=== PATIENT | female | born 1985 | race Caucasian/White ===

== ENCOUNTER 2018-09-14 16:58 | Inpatient (IN) | payer OTHER ==
[~2018-09-14] VITALS: Ht 172.7 cm; Wt 85.9 kg
[2018-09-14] MEDS ORDERED: PREN-93 PO (17:22)
[2018-09-14] MEDS ORDERED: MESA1.2T2 PO (17:22)
[2018-09-14] MEDS ORDERED: SERT100T PO (17:22)
[2018-09-14 17:23] VITALS: BP 101/57; PULSE 129; RESP 18
[2018-09-14 17:25] VITALS: Ht 172.7 cm; Wt 85.9 kg
--- NOTE | 2018-09-14 17:42 | TRIAGE ---
OB Triage Datetime Report Generated by CPN: 09/14/2018 17:41 Datetime: 09/14/2018 17:30 Vaginal Exam Dilatation (cms): 1.0 Effacement (%): 50 Station: -2 Exam By: FABI Vaginal Bleeding: None Pool: Positive Nitrazine: Positive Cervix, Consistency: Moderate Cervix, Position: Midposition Datetime: 09/14/2018 17:18 Assessment Type: Triage EGA: 37.4 Maternal Assessment Level of Consciousness: Fully Conscious DTR's/Clonus: DTRs 2+; No Clonus Headache: Denies Blurred Vision: No Respiratory Effort: Unlabored; Regular Rhythm; Equal Expansion Breath Sounds, Left: Clear and Equal Breath Sounds, Right: Clear and Equal Nausea/Vomiting: Denies RUQ Epigastric Pain: Denies Lower Extremities Edema: Bilateral Lower Extremities Degree: None Upper Extremities Edema: None Degree: None Facial Edema: None Fall Risk Assessment History of Falling: (0) No Secondary Diagnosis: (0) No Ambulatory Aid: (0) Bedrest/Nurse Assist IV Therapy: (0) No Gait: (0) Normal/Bedrest/Immobile Mental Status: (0) Oriented to Own Ability Fall Score: 0 Fall Risk Score Definition: No Risk: No action required Datetime: 09/14/2018 17:17 Time of Arrival: 09/14/2018 16:50 Arrived By: Ambulatory Arrived From: Home Chief Complaint: PT. HERE C/O SROM SINCE 1630 Movement: Present Contractions: Denies/Absent Rupture of Membranes: Ruptured Vaginal Bleeding: None Vaginal Discharge: Denies Recent Sexual Intercouse: Denies Abdominal Trauma: Not Applicable Patient Complaints: None Time Provider Notified: 09/14/2018 17:35 Provider Notified: REICHE Initial Plan: SVE/EFM Datetime: 09/14/2018 17:14 Labor Evaluation Monitor Mode: External Heart Rate Monitor Mode: External US
[2018-09-14] MEDS ORDERED: OXYTOCIN 30 UNITS/LR 500 ML IV SCH ×3 (18:00)
[2018-09-14] MEDS ORDERED: OXYTOCIN 30 UNITS/LR 500 ML IV PRN (18:00)
[2018-09-14] MEDS ORDERED: MISOPROSTOL 200 MCG TAB PR PRN (18:00)
[2018-09-14] MEDS ORDERED: METHYLERGONOVINE 0.2 MG INJ IM PRN (18:00)
[2018-09-14] MEDS ORDERED: IBUPROFEN 600 MG TAB PO PRN (18:00)
[2018-09-14] MEDS ORDERED: LIDOCAINE 1% (MPF) 30 ML INJ INJ PRN (18:00)
[2018-09-14] MEDS ORDERED: BUTORPHANOL 2 MG INJ IV PRN (18:00)
[2018-09-14] MEDS ORDERED: CARBOPROST 250 MCG INJ IM PRN (18:00)
[2018-09-14] MEDS: LACTATED RINGER'S 1,000 ML IV SCH ×2 (18:46→21:18)
[2018-09-14] MEDS ORDERED: RANITIDINE 150 MG TAB PO ONE (23:00)
[2018-09-15] MEDS ORDERED: FENTAnyl 2MCG/ML-ROPIV 0.2% 100 ML ONE (00:24)
--- NOTE | 2018-09-15 00:34 | PREAC ---
Date/Time of Note Date/Time of Note DATE: 09/15/18 TIME: 00:33 Anesthesia Eval and Record Evaluation Time Pre-Procedure Interview DATE: 09/15/18 TIME: 00:33 Age 33 Sex female NPO: 8 hrs Preoperative diagnosis Labor Pain Planned procedure Labor Epidural Past Medical History Past Medical History: Includes Heme: Anemia : : (1), Para: (0), Gestational age: (37) Surgery & Anesthesia Issues No known issue Meds Anticoagulation: No Beta Lloyd within 24 hr: No Reason Beta Lloyd not given: Pt. not on B-Lloyd Reported Medications Vit No.124/Iron/FA ( Vitamin Tablet) 1 Each Tablet, 1 EACH PO DAILY, TAB 09/14/18 Mesalamine (Lialda) 1.2 Gm Tablet.dr, 1.2 GM PO QHS 09/14/18 Sertraline Hcl* (Zoloft*) 100 Mg Tablet, 100 MG PO QHS, #30 TAB 09/14/18 Current Medications Lactated Ringer's 1,000 ml @ 125 mls/hr Q8H IV Last administered on 09/14/18at 21:18; Admin Dose 125 MLS/HR; Start 09/14/18 at 17:44 Butorphanol Tartrate (Stadol) 2 mg Q2H PRN IV .PAIN; Start 09/14/18 at 18:00 Lidocaine (Xylocaine 1% (Mpf)) 30 ml ONCE PRN INJ .EPISIOTOMY; Start 09/14/18 at 18:00 Oxytocin/Lactated Ringer's 500 ml @ 500 mls/hr ONCE POST IV ; Start 09/14/18 at 18:00 Oxytocin/Lactated Ringer's 500 ml @ 125 mls/hr POST IV ; Start 09/14/18 at 18:00 Ibuprofen (Motrin) 600 mg ONCE PRN PO .PAIN 1-5; Start 09/14/18 at 18:00 Oxytocin/Lactated Ringer's 500 ml @ 0 mls/hr ONCE PRN IV .VAGINAL BLEEDING; Start 09/14/18 at 18:00 Methylergonovine Maleate (Methergine) 0.2 mg ONCE PRN IM .VAGINAL BLEEDING; Start 09/14/18 at 18:00 Carboprost Tromethamine (Hemabate) 250 mcg ONCE PRN IM .VAGINAL BLEEDING; Start 09/14/18 at 18:00 Misoprostol (Cytotec) 1,000 mcg ONCE PRN WA .VAGINAL BLEEDING; Start 09/14/18 at 18:00 Oxytocin/Lactated Ringer's 500 ml @ 0 mls/hr FOR AUGMENTATION IV Last administered on 09/14/18at 22:10; Admin Dose 1 MLS/HR; Start 09/14/18 at 18:00 Meds reviewed: Yes Allergies Coded Allergies: No Known Allergy (Unverified , 09/14/18) Allergies Reviewed: Yes Labs/Studies Labs Reviewed: Reviewed by anesthesiologist Result Diagram: 09/14/18 1840 Laboratory Tests 09/14/18 18:40 Blood Bank Test 09/14/18 18:40 Antibody Screen NEGATIVE Blood Type O POSITIVE Rh Immune Globulin Candidate NO test: Positive Studies: ECG (n/a), CXR (n/a) Pre-procedure Exam Last vitals Vital Signs Date Temp Pulse Resp B/P (MAP) Pulse Ox O2 O2 Flow FiO2 Time Delivery Rate 09/14/18 97.7 129 18 101/57 Room Air 17:23 (72) Airway: Adequate mouth opening, Adequate thyromental dist Mallampati: Mallampati II Teeth: Normal Lung: Normal Heart: Normal ASA Physical Status ASA physical status: 2 Emergency: None Planned Anesthetic Neuraxial: Epidural Planned Pain Management Epidural Pre-operative Attestations Prior to commencing anesthesia and surgery, the patient was re-evaluated, there was verification of: *The patient's identity *The results of appropriate recent lab work and preoperative vital signs *The above evaluation not changing prior to induction *Anesthetic plan, risk benefits, alternative and complications discussed with patient/family; questions answered; patient/family understands, accepts and wishes to proceed. KRIS HERNANDEZ MD Sep 15, 2018 00:34
--- NOTE | 2018-09-15 00:40 | PAC ---
Date/Time of Note Date/Time of Note DATE: 09/15/18 TIME: 00:40 Post-Anesthesia Notes Post-Anesthesia Note Last documented vital signs Vital Signs Date Temp Pulse Resp B/P (MAP) Pulse Ox O2 O2 Flow FiO2 Time Delivery Rate 09/15/18 98.7 87 18 101/57 100 Room Air 00:33 (72) Activity: WNL Respiratory function: WNL Cardiovascular function: WNL Mental status: Baseline Pain reasonably controlled: Yes Hydration appropriate: Yes Nausea/Vomiting absent: Yes KRIS HERNANDEZ MD Sep 15, 2018 00:40
[2018-09-15] MEDS: LACTATED RINGER'S 1,000 ML IV SCH ×4 (00:42→09:22)
[2018-09-15] MEDS ORDERED: NALOXONE (0.4 MG/ML) INJ IV PRN (01:00)
[2018-09-15] MEDS: FENTAnyl 2MCG/ML-ROPIV 0.2% 100 ML BAG EPI SCH ×2 (08:26→15:52)
[2018-09-15] MEDS ORDERED: RANITIDINE 150 MG TAB PO SCH (09:30)
[2018-09-15] MEDS ORDERED: AMPICILLIN 2 GM/NS (PMX) 100 ML IV ONE (09:30)
[2018-09-15] MEDS ORDERED: VALACYCLOVIR 500 MG TAB PO SCH (09:30)
[2018-09-15] MEDS ORDERED: AMPICILLIN 1 GM/NS (PMX) 50 ML IV SCH (13:30)
[2018-09-15] MEDS: LACTATED RINGER'S 1,000 ML IV* SCH (17:22)
[2018-09-15] MEDS ORDERED: OXYTOCIN 30 UNITS/LR 500 ML IV SCH (17:22)
--- NOTE | 2018-09-15 17:29 | LDN ---
Date/Time of Note Date/Time of Note DATE: 09/15/18 TIME: 17:27 Delivery Summary of a viable baby girl weighing 3255 grams or 7# 3 oz, 20" long, and with Apgars of 9/9. Weeks of Gestation 37w 5d Placenta Delivered: Spontaneously Meconium: none Episiotomy: No Perineal laceration: 2 Laceration repair: 2nd degree perineal laceration and b/l 1st degree lacerations all repaired with 2-0 chromic. Anesthesia type: Epidural Estimated blood loss: 250 Sponge & Needle done & correct: Yes All needle counts correct: Yes Any foreign bodies felt in the: No (vagina) Delivery Information Sex Infant Sex: female Apgars 1 Minute: 9 5 Minute: 9 Suctioning Nose & mouth suctioned at sammie: Yes Delee suction performed: No Umbilical Cord Umbilical cord with: 3 Vessels Cord presentations: no nuchal cord Cord Blood was obtained: Yes Mother & Baby Disposition Disposition Mom & Baby to Maternity; Good: Yes Baby to NICU: No AMANDA LAW MD Sep 15, 2018 17:29
[2018-09-15] MEDS ORDERED: MISOPROSTOL 200 MCG TAB PR PRN (17:30)
[2018-09-15] MEDS ORDERED: BENZOCAINE 20% 56 ML SPRAY TOP PRN (17:30)
[2018-09-15] MEDS ORDERED: CARBOPROST 250 MCG INJ IM PRN (17:30)
[2018-09-15] MEDS ORDERED: LANOLIN HPA 1 PKT TOP PRN (17:30)
[2018-09-15] MEDS ORDERED: OXYTOCIN 30 UNITS/LR 500 ML IV PRN (17:30)
[2018-09-15] MEDS ORDERED: WITCH HAZEL/GLYCERIN PAD PR PRN (17:30)
[2018-09-15] MEDS ORDERED: METHYLERGONOVINE 0.2 MG INJ IM PRN (17:30)
--- NOTE | 2018-09-15 17:34 | HP ---
Date/Time of Note Date/Time of Note DATE: 09/15/18 TIME: 17:29 OB - History Hx of Present Free Text/Dictation 33 y.o. A1 with an IUP at 37w 4d came in 09/14 with spontaneous rupture of membranes and an initial exam of 50% and 1-2 cm. Estimated Due Date: Oct 01, 2018 : 2 Para: 0 Therapeutic : 1 Care: Good Care Ultrasounds: Normal mid trimester US Obstetrical Complications: None Medical Complications: None Other Concerns: PMHx: Bipolar disorder-stable. Ulcerative colitis- stable. Herpes. PSHx: Hymenectomy 2000. NKDA. Past Family/Social History * Past Medical, Surgical, Family and Obstetric Histories reviewed from chart. Blood Type: O+ Rubella: immune RPR/VDRL: Negative GBS Status: Negative HBsAG: Negative OB Admission Exam Vital Signs Vital Signs Vital Signs Date Temp Pulse Resp B/P (MAP) Pulse Ox O2 O2 Flow FiO2 Time Delivery Rate 09/14/18 97.7 129 18 101/57 Room Air 17:23 (72) Physical Exam HEENT: WNL Heart: Rhythm Normal Lungs: Clear Abdomen: WNL Extremities: Normal Reflexes: Normal Cervical Dilatation: 1cm Effacement: 50% Station: -3 Membranes: Ruptured Amniotic Fluid: Clear Heart Rate: 120's Accelerations: Accelerations Present Decelerations: No Decelerations Varibility: Moderate Contractions on Admission: < 5 Minutes Apart Intensity: Moderate Last 72 hours Lab Results CBC & BMP 09/14/18 18:40 OB Assessment/Plan Reason for admission: rupture of membranes Other Assessment: Bipolar d/o. Ulcerative colitis. Herpes. Plan: Expectant Management Other plan: Pitocin augmentation. AMANDA LAW MD Sep 15, 2018 17:34
[2018-09-15] MEDS: IBUPROFEN 600 MG TAB PO SCH ×2 (18:50→23:29)
[2018-09-15 19:45] VITALS: BP 109/52; PULSE 93; RESP 19
[2018-09-15] MEDS ORDERED: Mesalamine DR 1.2 GM TAB PO SCH (21:00)
[2018-09-15] MEDS ORDERED: SERTRALINE 100 MG TAB PO SCH (21:00)
[2018-09-15] MEDS ORDERED: PATIENT'S OWN MEDICATION PO SCH (21:00)
[2018-09-15] MEDS: SERTRALINE 100 MG TAB PO SCH (22:42)
[2018-09-15] MEDS: Mesalamine DR 1.2 GM TAB PO SCH (23:49)
[2018-09-16 00:25] VITALS: BP 112/66; PULSE 82; RESP 18
[2018-09-16] MEDS: LACTATED RINGER'S 1,000 ML IV* SCH (01:22)
[2018-09-16] MEDS: HYDROCODONE/APAP (5/325) TAB PO PRN ×2 (02:18→17:13)
[2018-09-16] MEDS: IBUPROFEN 600 MG TAB PO SCH ×3 (05:45→18:01)
[2018-09-16 07:45] VITALS: BP 94/61; PULSE 75; RESP 17
[2018-09-16] MEDS: VALACYCLOVIR 500 MG TAB PO SCH (09:01)
[2018-09-16 11:42] VITALS: BP 105/58; PULSE 84; RESP 18
--- NOTE | 2018-09-16 15:02 | PD.PPDC ---
[employer]ICER Discharge Instruction Condition [id number] Patient Condition: [id number] Good Diet [id number] Diet: Flvom2y Resume Regular Diet Activity/Restrictions [id number] Activity: [id number] Normal Activity May Shower [id number] Restrictions: [id number] No Sexual Activity Nothing in the Vagina No Riner No Tampons, douche Follow-up Follow-up with Physician: Week/Weeks Return to clinic for [id number] [employer] SUPERVISOR Instructions: [id number] Fever greater than 101 Chills Worsening abdominal pain Excessive Vaginal Bleeding [id number] OB Instructions: [id number] Breast Tenderness Depression AMANDA LAW MD Sep 16, 2018 15:02
--- NOTE | 2018-09-16 15:04 | DS ---
Date/Time of Note Date/Time of Note DATE: 09/16/18 TIME: 15:03 Obstetrical Discharge Record Final Diagnosis Final Diagnosis: Term delivered Vaginal Delivery Obstetrical Delivery: Spontaneous, Laceration, Repaired Complications Augmentation: Yes Induction: No Condition on Discharge Physical Assessment Last Vitals: T= 97.9 BP 105/58 Voiding: Yes Bowel Movement: Yes Breast: Soft, non-tender Fundus: Firm Episiotomy: Laceration repair intact. Calf Tenderness: No Patient Condition: Good AMANDA LAW MD Sep 16, 2018 15:04
[2018-09-16 16:30] VITALS: BP 100/55; PULSE 86; RESP 20
[2018-09-16 20:00] VITALS: BP 112/61; PULSE 76; RESP 17
[2018-09-16] MEDS: SERTRALINE 100 MG TAB PO SCH (21:14)
[2018-09-16] MEDS: Mesalamine DR 1.2 GM TAB PO SCH (21:14)
[2018-09-17] MEDS: IBUPROFEN 600 MG TAB PO SCH ×3 (00:03→12:14)
[2018-09-17 03:20] VITALS: BP 109/59; PULSE 74; RESP 18
[2018-09-17 07:40] VITALS: BP 121/68; PULSE 65; RESP 20
[2018-09-17] MEDS: VALACYCLOVIR 500 MG TAB PO SCH (08:51)
[2018-09-17] MEDS ORDERED: DIPHTH/TET/ACEL PERTUSS (ADULT) 0.5 ML VIAL IM* ONE (09:00)
== END 2018-09-17 15:18 | disposition home or self-care (01) | DRG 807 ==
LOC: OBT 16:58 → L-D 17:01 → OBT 17:35 → L-D 21:48 → PP1 09-15 19:48
PROVIDERS: ADMIT Obstetrics & Gynecology; ATTEND Obstetrics & Gynecology
PROC: 10E0XZZ Delivery of Products of Conception, External Approach (ICD-10-PCS; principal; 2018-09-15)
PROC: 0KQM0ZZ Repair Perineum Muscle, Open Approach (ICD-10-PCS; 2018-09-15)
DX: O98.52 Other viral diseases complicating childbirth (principal); Z37.0 Single live birth; B00.9 Herpesviral infection, unspecified; O99.344 Other mental disorders complicating childbirth; F31.9 Bipolar disorder, unspecified; O70.1 Second degree perineal laceration during delivery; Z3A.37 37 weeks gestation of pregnancy
CPT/HCPCS: 62319; 85025; 85610; 85730; 86592; 86850; 86900; 86901; 99464; G0463; J0290; J2590; J3010; J7120